=== PATIENT | male | born 1955 | race Caucasian/White ===

== ENCOUNTER 2019-10-19 05:32 | Inpatient (IN) ==
--- NOTE | 2019-10-09 12:24 | Anesthesiology Consultation ---
Date of Service October 09, 2019 Assessment & Plan (1) Encounter for pre-operative examination: Chart Review Chart Review: Acceptable Risk for Surgery and Patient seen in Pre Admission Testing Teaching & Discussion Instructed NPO after midnight before surgery, except medications with 15 cc of water. Medication instructions provided according to the PAT guidelines. History Surgery Operation Date: 10/19/19 07:30 Proposed Procedures p L4-L5 Posterior Lumbar Interbody Fusion - Tyree Leblanc DO Height/Weight Height: 5 ft 7 in Weight: 75.7 kg Allergies Allergy/AdvReac Type Severity Reaction Status Date / Time No Known Allergies Allergy Verified 10/09/19 11:37 Medications Home Medications Medication Instructions Recorded Confirmed Last Taken aspirin 81 mg tablet,delayed 81 mg PO DAILY 09/29/19 10/09/19 10/09/19 release ibuprofen 200 mg tablet 200 mg PO UD PRN tab 09/29/19 10/09/19 Unknown metformin 500 mg tablet 500 mg PO QAM tab 09/29/19 10/09/19 10/09/19 cholecalciferol (vitamin D3) 5,000 unit PO DAILY 10/09/19 10/09/19 Unknown [Vitamin D3] multivitamin 1 cap PO DAILY 10/09/19 10/09/19 Unknown Past Medical History Medical History Diabetes Hemochromatosis Radiculopathy due to lumbar intervertebral disc disorder Exercise / Class Metabolic Activity III < 4 Walking/Shop/Light housework (Denies CP or SOB with 1 FOS, but moving slowly and requires cane currently due to R leg weakness) Past Family History Family History Brother Family history of diabetes mellitus Other Familial hemochromatosis Past Surgical History Surgical History History of arthroscopy of right knee History of colonoscopy Past Anesthesia History No Hx of Anesthesia Complications and No Family Hx of Anesthesia Complications History of PONV No Hx of PONV and No Hx of Motion Sickness Social History Smoking Status: Former smoker tobacco type: cigarettes Do You Dip or Chew Tobacco: No (HX OF , NONE CURRENT) Smoking End Date: AGE [age] Hx Alcohol Use: Yes (RARE, 1 EVERY 2 YRS) Hx Substance Use: No (HX SMOKED POT WHEN YOUNG, NONE CURRENT) substance use type: does not use Review of Systems Pt denies any recent chest pain, shortness of breath, palpitations, cough, fever or URI. Physical Exam Vital Signs BP: 133/77 P: 67bpm SPO2: 94% RA T: 97.9 F R: 12 ENMT Mouth: + dentition abnormality (few missing); no dental restorations, no chipped teeth and no loose teeth Thyromental Distance: > or= 3.5 Finger Breadths (4) Mallampati Class: I Neck normal visual inspection and + limited neck extension (mildly) Respiratory normal respiratory effort Auscultation: lungs clear to auscultation bilaterally Cardiovascular Rate/Rhythm: regular rate and regular rhythm Heart Sounds: no murmur Vessels: no carotid bruit Testing Laboratory Results 10/09/19 12:07 PT 10.5 Seconds (9.0-12.0) 10/09/19 12:07 INR 1.0 (0.9-1.1) 10/09/19 12:07 APTT 26.1 Seconds (21.0-31.0) 10/09/19 12:07 Blood Type A Positive 10/09/19 12:07 Antibody Screen NEGATIVE 10/09/19 12:07 10/06/19 SODIUM: 140 POTASSIUM: 3.9 CHLORIDE: 103 CO2: 30 BUN: 14 CREATININE: 1.0 GLUCOSE: 278 A1C: 6.4 % Electrocardiogram Date: 10/06/19 Findings: + NSR @ (67bpm) Rightward axis. Chest X-Ray Date: 10/09/19 FINDINGS: Mild elevation right hemidiaphragm possibly chronic. Minimal bibasilar atelectasis. Lungs otherwise appear clear. IMPRESSION: Chronic changes. No acute process.
--- NOTE | 2019-10-09 12:25 | PAT Medication Instructions ---
Medication Instructions Date of Service October 09, 2019 Home Medications aspirin 81 mg tablet,delayed release 81 mg PO DAILY ibuprofen 200 mg tablet 200 mg PO UD PRN metformin 500 mg tablet 500 mg PO QAM cholecalciferol (vitamin D3) [Vitamin D3] 5,000 unit PO DAILY multivitamin 1 cap PO DAILY ASK your surgeon for instructions aspirin 81 mg tablet,delayed release 81 mg PO DAILY ibuprofen 200 mg tablet 200 mg PO UD PRN DO NOT take the morning of surgery metformin 500 mg tablet 500 mg PO QAM cholecalciferol (vitamin D3) [Vitamin D3] 5,000 unit PO DAILY multivitamin 1 cap PO DAILY Other Notes If you have any questions please call us at [phone] or [phone] or [phone] or [phone]
--- NOTE | 2019-10-09 13:17 | XRay Report ---
XR chest Pre-admission PA/Lat CLINICAL HISTORY: PAT preoperative evaluation COMPARISON STUDY: No previous studies for comparison. FINDINGS: Mild elevation right hemidiaphragm possibly chronic. Minimal bibasilar atelectasis. Lungs otherwise appear clear. IMPRESSION: Chronic changes. No acute process. The above report was generated using voice recognition software. It may contain grammatical, syntax or spelling errors. Electronically signed by: Mumtaz Tucker M.D. 10/09/2019 1:16 PM
[2019-10-09 15:27] LABS: Basophils # (auto) 0.02 K/uL (0-0.2); Basophils % (auto) 0.3 %; Eosinophils # (auto) 0.03 K/uL (0-0.5); Eosinophils % (auto) 0.5 %; Hematocrit (blood only) 47.3 % (42-52); Hemoglobin 16.3 g/dL (14.0-18.0); Immature Granulocytes # (auto) 0.01 K/uL (0.00-0.02); Immature Granulocytes % (auto) 0.2 %; Lymphocytes # (auto) 1.21 K/uL (1.2-3.4); Lymphocytes % (auto) 18.5 %; Mean Corpuscular Hemoglobin 33.6 pg (25-34); Mean Corpuscular Hgb Conc 34.5 g/dL (32-36); Mean Corpuscular Volume 97.5 fL (80-100); Mean Platelet Volume 10.9 fL (7.4-10.4); Monocytes # (auto) 0.37 K/uL (0.11-0.59); Monocytes % (auto) 5.7 %; Neutrophils # (auto) 4.89 K/uL (1.4-6.5); Neutrophils % (auto) 74.8 %; Platelet Count 193 K/uL (130-400); RDW Standard Deviation 46.2 fL (36.4-46.3); Red Blood Count 4.85 M/uL (4.7-6.1); White Blood Count 6.53 K/uL (4.8-10.8)
[2019-10-09 15:45] LABS: Partial Thromboplastin Time 26.1 Seconds (21.0-31.0); Prothrombin Time 10.5 Seconds (9.0-12.0)
--- NOTE | 2019-10-16 10:45 | History and Physical Report ---
DATE OF ADMISSION: 10/19/2019 CHIEF COMPLAINT: Back pain, lower extremity difficulty. Numbness, tingling and fairly profound weakness to the extremity. He has had conservative care. He had a significant workup. He has a pinched L4 nerve root, lumbar spine L4-L5. PAST MEDICAL HISTORY: Diabetes mellitus. PAST SURGICAL HISTORY: Right knee scope. ALLERGIES: Negative. SOCIAL HISTORY: He is single. No alcohol, tobacco. REVIEW OF SYSTEMS: Negative for fevers, sweats, chills, no bowel and bladder issues. EAR, NOSE AND THROAT: Negative. CARDIOVASCULAR AND RESPIRATORY: Negative. He has tingling, joint pain, weakness, muscle issues. He also has diabetes mellitus. MEDICATIONS: Listed: PHYSICAL EXAMINATION: GENERAL: He is 64. He is alert, oriented. He is 5 feet 7 inches, 165 pounds. VITAL SIGNS: Blood pressure 130/80, pulse 80. HEENT: Pupils react to light and accommodation. Ear, nose and throat clear. CARDIAC: Normal S1, S2, no S3. LUNGS: Clear to auscultation. No rales, rhonchi, wheezing. ABDOMEN: Soft, nontender. He has pain with flexion, extension, pain with rotation and quadriceps weakness, loss of sensation. Absent reflexes. Images reviewed. PLAN: Includes a PLIF (posterior lumbar interbody fusion) L4-5.
[2019-10-19] MEDS ORDERED: ACETAMINOPHEN 500 MG TAB PO SCH (06:00)
[2019-10-19] MEDS ORDERED: LR 15ML/HR IV SCH (06:00)
[2019-10-19] MEDS ORDERED: CEFAZOLIN 2000MG 2,000 MG/15 ML SYR IV SCH (06:00)
[2019-10-19] MEDS ORDERED: SODIUM CHLORIDE 0.9% 1,000 ML IV SCH (06:00)
[2019-10-19] MEDS ORDERED: ACETAMINOPHEN 1000 MG/100 ML IV IV SCH (06:00)
[2019-10-19] MEDS ORDERED: ACETAMINOPHEN 1000 MG/100 ML IV IV ONE (06:20)
[2019-10-19] MEDS ORDERED: ACETAMINOPHEN 1,000 MG/100 ML VIAL IV ONE (06:45)
[2019-10-19] MEDS ORDERED: MIDAZOLAM HCL 1 MG/ML 2ML VIAL ONE (07:00)
[2019-10-19] MEDS ORDERED: ePHEDrine sulfate 50 MG/ML AMP ONE (07:00)
[2019-10-19] MEDS ORDERED: LIDOCAINE HCL 2% 2 ML VIAL/AMP(20MG/ML) INFIL ONE (07:00)
[2019-10-19] MEDS ORDERED: SUCCINYLCHOLINE CHLORIDE 20 MG/ML 10 ML VIAL ONE (07:00)
[2019-10-19] MEDS ORDERED: NEOSTIGMINE METHYLSULFATE 5 MG/5 ML SYR ONE (07:00)
[2019-10-19] MEDS ORDERED: PROPOFOL IV EMULSION 10 MG/ML 20 ML VIAL IV ONE (07:00)
[2019-10-19] MEDS ORDERED: ONDANSETRON INJ 2 MG/ML 2 ML VIAL ONE (07:00)
[2019-10-19] MEDS ORDERED: fentaNYL citrate 100 MCG/2 ML VIAL ONE (07:00)
[2019-10-19] MEDS ORDERED: GLYCOPYRROLATE 0.2 MG/ML VIAL ONE (07:00)
[2019-10-19] MEDS ORDERED: PHENYLEPHRINE HCL 10 MG/ML VIAL ONE (07:00)
[2019-10-19] MEDS ORDERED: DEXAMETHASONE SOD INJ 4 MG/ML VIAL ONE (07:00)
[2019-10-19] MEDS ORDERED: HYDROmorphone INJ 2 MG/ML SYR/VIAL IV PRN (07:03)
[2019-10-19] MEDS ORDERED: ATROPINE SULFATE 0.1 MG/ML 10ML SYR IV PRN (07:03)
[2019-10-19] MEDS ORDERED: METOCLOPRAMIDE HCL INJ 5 MG/ML 2 ML VIAL IV PRN (07:03)
[2019-10-19] MEDS ORDERED: ONDANSETRON INJ 2 MG/ML 2 ML VIAL IV PRN ×2 (07:03→11:33)
[2019-10-19] MEDS ORDERED: ePHEDrine sulfate 50 MG/ML AMP IV PRN (07:03)
[2019-10-19] MEDS ORDERED: PROMETHAZINE HCL 12.5 MG in SODIUM CHLORIDE 0.9% 50 ML IV PRN ×2 (07:03→11:33)
[2019-10-19] MEDS ORDERED: fentaNYL citrate 100 MCG/2 ML VIAL IV PRN (07:03)
[2019-10-19] MEDS ORDERED: BACITRACIN INJ 50,000 UNIT VIAL ONE (07:07)
[2019-10-19] MEDS ORDERED: GELATIN SPONGE SZ 100 ONE (07:07)
[2019-10-19] MEDS ORDERED: VANCOMYCIN HCL 1000MG/20ML VIAL ONE (07:08)
[2019-10-19] MEDS ORDERED: THROMBIN FOR SOLN 20000 UNIT KIT ONE (07:10)
[2019-10-19] MEDS ORDERED: BUPIVACAINE/EPINEPHRINE 0.5% MPF 1:200,000 10 ML VIAL ONE (07:11)
--- NOTE | 2019-10-19 07:17 | History & Physical Bridge Note ---
Date of Service October 19, 2019 History & Physical Bridge Note I have examined the patient, reviewed the History & Physical and in the interval since the performance of the History & Physical I have noted the following changes of clinical significance: no changes noted
[2019-10-19] MEDS ORDERED: HYDROmorphone INJ 2 MG/ML SYR/VIAL ONE (08:16)
--- NOTE | 2019-10-19 09:58 | Fluoroscopy Report ---
FL spine 1V any level HISTORY: 64 years-old Male L4-L5 POSTERIOR FUSION STATUS post fusion of the lower lumbar spine. 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 Alignment appears satisfactory. The hardware appears intact. Multilevel spondylitic spurring. Di sc space narrowing at L5-S1 redemonstrated. IMPRESSION: Postoperative changes as above. Please see operative report for further details. The above report was generated using voice recognition software. It may contain grammatical, syntax o r spelling errors. Electronically signed by: Ajay Arias M.D. 10/19/2019 9:56 AM
--- NOTE | 2019-10-19 10:07 | Post Operative Brief Note ---
PG Immediate Post Op with CF Date of Surgery October 19, 2019 Pre & Post Diagnosis Operation Date: 10/19/19 07:30 Pre-Op Diagnosis: Spinal Stenosis Post-Op Diagnosis: Spinal Stenosis I identified the patient and participated in the time-out.: Yes Procedure Operation Date: 10/19/19 07:30 Actual Procedures p L4-L5 Posterior Lumbar Interbody Fusion - Tyree Leblanc DO Surgeon Tyree Leblanc DO Outside Physical Damage Appraiser alli Estimated Blood Loss 100 Findings Consistent with Post-Op Diagnosis Specimens Specimen Description: none collected per surgeon Drains De Santiago Catheter and Hemovac Drain Disposition Accompanied Patient To Recovery: Yes Overlapping Procedure I was immediately available: during the entire case.
--- NOTE | 2019-10-19 10:19 | Operative Report ---
PG Post Operative Report Pre & Post Diagnosis Operation Date: 10/19/19 07:30 Pre-Op Diagnosis: Spinal Stenosis Post-Op Diagnosis: Spinal Stenosis I identified the patient and participated in the time-out.: Yes Procedure Operation Date: 10/19/19 07:30 Actual Procedures p L4-L5 Posterior Lumbar Interbody Fusion - Tyree Leblanc DO Surgeon Tyree Leblanc DO Foreclosure Specialist alli Estimated Blood Loss 100 Findings Consistent with Post-Op Diagnosis Specimens No specimens Drains Hemovac drain Indications Progressive neurological deficit weakness falling Description of Procedure Patient was taken to the operating room a general intubated anesthetic provided to the patient. A De Santiago catheter administered. Antibiotics also delivered. Patient was then placed prone on the Thuan table scrubbed prepped draped sterile. Formal timeout was taken We made a skin incision over the 4 5 interval the lumbar spine. Dissecting the soft tissue in the same plane we came down on the facet joints and out over the transverse processes bilaterally. We put in a self-retaining retractor. I decompress the neural elements carefully getting the lamina off between 4 and 5 foraminotomies were provided. The partial facetectomies move of ligamentum flavum hypertrophy. After careful decompression of the spine I was pleased with the freedom of the nerve root. The nerve root on the right-hand side was expanded and swollen approximately 3 times normal size. We then instrumented spine safely getting pedicle screws then at 5 and 4 on the left 5 and 4 on the right. We used anatomic guidelines and C arm guidance. We then did the posterior lumbar interbody fusion portion the procedure we retracted the dura and nerve root over on the right side protecting the 4th nerve root which was expanded tech to the 5th nerve root and the 4th nerve root. We did a full discectomy at L4-5 with straight pituitaries down biters upbiters. We used nikky to clean out the interval. I felt safe to go ahead with the interbody device able to select a 12 mm in height interbody cage. This was 26 mm in length and that and 10 mm wide. With much care we carefully placed the interbody between a 4 5 interval elevating up the disc interspace approximately 4 mm. We then placed a longitudinal job from the [facility] between the screws 4 and 5 locked this down. We irrigated with approximately 500 cc of fluid we continued our Villagomez getting bone graft out of the transverse processes of L4 and 5. This completed the 360 degree fusion. We then sprinkled vancomycin powder into the wound close fascia the fascia with 1 Vicryl suture 2 oh in a subcuticular layer. 3-0 nylon used on the skin surface. Sterile dressings applied. Sponge and needle count correct at the close of procedure. Implants used by the Smava. Bone graft used was combination of morselized autograft and demineralized bone matrix Patient safely brought to recovery room satisfactory stable without issues I attest to the content of the Intraoperative Record and any orders documented therein. Any exceptions are noted below.
[2019-10-19] MEDS ORDERED: ROCURONIUM BROMIDE 10 MG/ML 5 ML VIAL ONE (10:24)
[2019-10-19] MEDS ORDERED: ePHEDrine sulfate 50 MG/ML SYR ONE (10:24)
--- NOTE | 2019-10-19 10:53 | Anesthesiology Progress Note ---
Date of Service October 19, 2019 Anesthesia Post Procedure Vital Signs Vital Signs: Temp Pulse Pulse Resp BP Pulse Ox 10/19/19 10:45 36.7 C 72 18 138/71 96 10/19/19 10:35 70 18 139/69 100 10/19/19 10:25 79 18 140/73 99 10/19/19 10:15 36.0 C L 86 18 156/76 H 98 10/19/19 06:12 36.6 C 65 20 141/71 H 95 Transfer of Care Handoff Completed per policy Notes Mental Status: alert / awake / arousable and participated in evaluation Patient Amnestic to Procedure: Yes Nausea / Vomiting: adequately controlled Pain: adequately controlled Airway Patency, RR, SpO2: stable & adequate BP & HR: stable & adequate Hydration State: stable & adequate Anesthetic Complications: no major complications apparent
[2019-10-19] MEDS ORDERED: bisacodyL 10 MG SUPP PR PRN (11:33)
[2019-10-19] MEDS ORDERED: MAGNESIUM HYDROXIDE SUSP 30 ML UDC PO PRN (11:33)
[2019-10-19] MEDS ORDERED: OXYCODONE HCL IR 5 MG TAB (IMMEDIATE RELEASE) PO PRN (11:33)
[2019-10-19] MEDS ORDERED: DO NOT ADMINISTER PNEUMOCOCCAL VACCINE PRN (11:33)
[2019-10-19] MEDS ORDERED: ALUMINUM/MAGNESIUM SUSP 30 ML UDC PO PRN (11:33)
[2019-10-19] MEDS ORDERED: DO NOT ADMINISTER FLU VACCINE PRN (11:33)
[2019-10-19] MEDS ORDERED: NALOXONE HCL 0.4 MG/1 ML VIAL/CARP IV PRN (11:33)
[2019-10-19] MEDS ORDERED: ONDANSETRON 4 MG OD TAB PO PRN (11:33)
[2019-10-19] MEDS ORDERED: ACETAMINOPHEN 1,000 MG/100 ML VIAL IV PRN (11:33)
[2019-10-19] MEDS ORDERED: SOD PHOSPHATE/SOD BIPHOSPHATE ENEMA 132 ML BTL PR PRN (11:33)
[2019-10-19] MEDS ORDERED: FAMOTIDINE 20 MG TAB PO PRN (11:33)
[2019-10-19] MEDS ORDERED: HYDROmorphone INJ 0.5 MG/0.5 ML SYR IV PRN (11:33)
[2019-10-19] MEDS ORDERED: PHARMACY GLYCEMIC MGMT CONSULT PRN (11:45)
[2019-10-19] MEDS ORDERED: GLUCAGON FOR INJ 1 MG VIAL IM PRN (12:00)
[2019-10-19] MEDS ORDERED: CARBOHYDRATES FOR HYPOGLYCEMIA PO PRN (12:00)
[2019-10-19] MEDS ORDERED: DEXTROSE 50% 50 ML SYRINGE IV PRN (12:00)
[2019-10-19] MEDS ORDERED: GLUCOSE 40% GEL 15 GM TUBE PO PRN (12:00)
[2019-10-19] MEDS ORDERED: GLUCOSE 10 TABS/TUBE PO PRN (12:00)
[2019-10-19] MEDS ORDERED: LANTUS PER UNIT CHARGE SQ ONE ×2 (12:45→21:00)
[2019-10-19] MEDS: SODIUM CHLORIDE 0.9% 1000ML 1,000 ML IV SCH (12:58)
[2019-10-19] MEDS: KETOROLAC TROMETHAMINE 15 MG/ML VIAL IV SCH ×2 (12:59→18:11)
[2019-10-19] MEDS: INSULIN ASPART 100 UNITS/ML 3 ML PEN SC SCH ×3 (13:03→21:09)
--- NOTE | 2019-10-19 13:44 | Pharmacy Report ---
Glycemic Control Consultation - Date of Service October 19, 2019 - Scope Scope: Glycemic Pharmacist consulted by GAIL Durán on 10/19 for glycemic control and to write orders per [facility] inpatient glycemic control protocol - Objective Weight: 75.41 kg Accuchecks BSG (last 24hrs): 10/19/19 10/19/19 10/19/19 06:03 10:20 12:05 POC Glucose 148 H 222 H 215 H - Recent Pertinent Medications Outpatient Anti-diabetic Regimen: * metformin 500 qam * A1c = 6.4 % 10/06/19 Risk Factors for Insulin Resistance: * Steroids: dex 4 iv x 1 in OR * Recent Surgery: POD 0 * Diet: T2DM - Assessment & Plan Assessment & Plan: ASSESSMENT: * 64 year old male now s/p lumbar fusion - type 2 diabetic managed only on metformin at home. A1C of 6.4% indicates good outpatient control. * Received dexamethasone in OR therefore anticipate steroid induced hyperglycemia. Pharmacy consulted for glycemic management. Will utilize basal/bolus dosing postop * Lunchtime BSG elevated at 215 mg/dL - verified with nurse patient has not eaten yet; will give dose of basal insulin for now and add scale on for this evening. Plan to add overnight checks for additional insulin coverage if needed. PLAN FOR INPATIENT GLYCEMIC CONTROL: * Pt is maintained on oral antidiabetic agents as an outpatient * Oral agents are not recommended for inpatient use d/t drug interactions, changing PO intake, and difficulty titrating for acute hyper/hypoglycemia. ADA recommends re-initiating outpatient oral agents 1-2 days prior to discharge if/when appropriate if they were held on admission. * Will hold oral agents for admission and utilize SQ basal bolus insulin regimen which is the recommended regimen for inpatient glycemic control. * Will initiate weight based insulin dosing for insulin sachi patient and titrate based on BSG trends. * Basal insulin * Lantus 15 units x 1 at lunch (~0.2 units/kg) * Lantus HS per scale -For BSG less than 180 - no Lantus -For BSG 180-220 - 5 units -For BSG greater than 220 - give 10 units * Bolus insulin * NovoLog per scale ACHS or Q6hrs while NPO * Goal Range: Low 110 mg/dL - High 140 mg/dL * Correction Factor: 25 mg/dL/unit * Nutritional / Prandial insulin per carb ratio of 1 unit per 8 grams CHO consumed * Please note that the plan above was derived based on current level of insulin resistance and hospital stress. These recommendations are appropriate for inpatient admission only. Plan of care upon discharge will need to be reassessed to avoid potential outpatient hypo/hyperglycemia. Thank you.
[2019-10-19] MEDS: CEFAZOLIN 2000MG 2,000 MG/15 ML SYR IV SCH (16:32)
[2019-10-19] MEDS: DOCUSATE SODIUM/SENNA 50/8.6MG TAB PO SCH (21:06)
[2019-10-20] MEDS: CEFAZOLIN 2000MG 2,000 MG/15 ML SYR IV SCH (00:10)
[2019-10-20] MEDS: KETOROLAC TROMETHAMINE 15 MG/ML VIAL IV SCH ×2 (00:10→06:18)
[2019-10-20] MEDS: INSULIN ASPART 100 UNITS/ML 3 ML PEN SC SCH ×6 (00:11→21:29)
[2019-10-20] MEDS: SODIUM CHLORIDE 0.9% 1000ML 1,000 ML IV SCH (02:31)
[2019-10-20] MEDS: POLYETHYLENE (MIRALAX) 17 GM PACK PO SCH ×4 (06:19→23:23)
[2019-10-20] MEDS ORDERED: METFORMIN HCL 500 MG TAB PO SCH ×2 (07:30→13:00)
--- NOTE | 2019-10-20 08:06 | Anesthesiology Progress Note ---
Date of Service October 20, 2019 Anesthesia Post Procedure Vital Signs Vital Signs: Temp Pulse Pulse Resp BP Pulse Ox 10/20/19 07:18 37.9 C H 74 16 114/63 95 10/20/19 03:41 36.7 C 68 16 106/58 L 93 10/19/19 23:40 36.6 C 64 16 119/63 98 10/19/19 19:00 36.6 C 86 18 119/63 96 10/19/19 15:13 36.5 C 74 18 123/71 96 10/19/19 14:01 36.4 C L 65 18 118/66 95 10/19/19 13:00 36.4 C L 67 16 134/77 97 10/19/19 12:00 53 L 18 114/61 94 10/19/19 11:30 57 L 18 127/67 92 10/19/19 11:00 35.8 C L 66 16 136/68 92 10/19/19 10:45 36.7 C 72 18 138/71 96 10/19/19 10:35 70 18 139/69 100 10/19/19 10:25 79 18 140/73 99 10/19/19 10:15 36.0 C L 86 18 156/76 H 98 Pain Intensity Right Leg: Pain Intensity: 0 Notes Mental Status: alert / awake / arousable Patient Amnestic to Procedure: Yes Nausea / Vomiting: adequately controlled Pain: adequately controlled Airway Patency, RR, SpO2: stable & adequate BP & HR: stable & adequate Hydration State: stable & adequate Anesthetic Complications: no major complications apparent and Pt Satisfied with anesthetic care
[2019-10-20] MEDS: MULTIVITAMIN TAB PO SCH (08:49)
[2019-10-20] MEDS: ASPIRIN 81 MG ECTAB PO SCH (08:50)
--- NOTE | 2019-10-20 09:03 | Pharmacy Report ---
Pharmacy Glycemic Short Note 2 - Date of Service October 20, 2019 - Glycemic Short BSG Results (Last 24 hours): 10/19/19 10/19/19 10/19/19 10:20 12:05 17:16 POC Glucose 222 H 215 H 185 H 10/19/19 10/20/19 10/20/19 20:57 00:04 04:00 POC Glucose 295 H 158 H 92 10/20/19 07:58 POC Glucose 140 H ASSESSMENT: 10/20: * Patient received total of 48 units of insulin yesterday, of which 25 were basal insulin to help cover steroids * Fasting BSG this AM 140 mg/dL - no further steroids ordered - loosen CF/CR and hold further basal insulin * Will ensure po intake adequate today, will resume metformin with lunch 10/19: * 64 year old male now s/p lumbar fusion - type 2 diabetic managed only on metformin at home. A1C of 6.4% indicates good outpatient control. * Received dexamethasone in OR therefore anticipate steroid induced hyp erglycemia. Pharmacy consulted for glycemic management. Will utilize basal/bolus dosing postop * Lunchtime BSG elevated at 215 mg/dL - verified with nurse patient has not eaten yet; will give dose of basal insulin for now and add scale on for this evening. Plan to add overnight checks for additional insulin coverage if needed. PLAN FOR INPATIENT GLYCEMIC CONTROL: * Add home metformin at lunch, continue daily * Basal insulin * hold further doses * Bolus insulin - loosen * NovoLog per scale ACHS or Q6hrs while NPO * Goal Range: Low 110 mg/dL - High 140 mg/dL * Correction Factor: 45 mg/dL/unit * Nutritional / Prandial insulin per carb ratio of 1 unit per -- grams CHO consumed * Please note that the plan above was derived based on current level of insulin resistance and hospital stress. These recommendations are appropriate for inpatient admission only. Plan of care upon discharge will need to be reassessed to avoid potential outpatient hypo/hyperglycemia. Thank you. PLAN FOR DISCHARGE: * A1C of 6.4% indicates great glucose control - would recommend continuation of home metformin on discharge as long as kidney function stable
[2019-10-20] MEDS ORDERED: METFORMIN HCL ER 500 MG TABCR PO SCH (13:00)
[2019-10-20] MEDS: DOCUSATE SODIUM/SENNA 50/8.6MG TAB PO SCH (21:27)
[2019-10-21 06:33] VITALS: BP 126/74; TEMP 99.5; O2SAT 93
[2019-10-21] MEDS: POLYETHYLENE (MIRALAX) 17 GM PACK PO SCH ×2 (06:42→14:26)
[2019-10-21] MEDS ORDERED: METFORMIN HCL ER 500 MG TABCR PO SCH (07:30)
[2019-10-21] MEDS: MULTIVITAMIN TAB PO SCH (07:47)
[2019-10-21] MEDS: ASPIRIN 81 MG ECTAB PO SCH (07:47)
[2019-10-21] MEDS: INSULIN ASPART 100 UNITS/ML 3 ML PEN SC SCH (07:51)
[2019-10-21] MEDS ORDERED: bisacodyL 5 MG TABEC PO ONE (08:16)
--- NOTE | 2019-10-21 08:24 | Discharge Summary ---
He is alert, oriented this morning, taking p.o., ambulatory. Pain controlled. He had uneventful 48-hour course, stayed here in the hospital. He will be discharged home today. We have given him instructions and precautions and nurses have as well. He has a back brace for support. He has a walker with wheels. He has medication instructions and follow up.
[2019-10-21 09:45] VITALS: PULSE 66
== END 2019-10-21 16:04 | disposition home health service (06) | DRG 460 ==
LOC: ASU 05:32 → 3E 10:16